=== PATIENT | male | born 1970 | race Caucasian/White ===

== ENCOUNTER 2018-08-20 12:24 | Emergency (ER) | payer BC ==
[2018-08-20 13:12] VITALS: BP 138/87; PULSE 77; RESP 18; TEMP 98.4; O2SAT 99
== END 2018-08-20 13:22 | disposition left against medical advice (07) ==
LOC: C.ER 12:24
DX: Z02.89 Encounter for other administrative examinations (principal); N20.0 Calculus of kidney